=== PATIENT | male | born 1955 | race Caucasian/White ===

== ENCOUNTER 2016-10-02 05:29 | Day surgery (SDC) | payer BC ==
[~2016-10-02] VITALS: Ht 172.7 cm; Wt 86.0 kg
[~2016-10-02 05:29] MED LIST: TYLENOL EXTRA500 MG PO; [UNRECOGNIZED DRUG - OTHER] PO
[2016-10-02 05:54] VITALS: BP 165/96
[2016-10-02 06:37] LABS: HEMATOCRIT 47.8 % (38.0-50.0); MCH 29.5 PG (29.0-34.0); MCHC 32.8 G/DL (30.0-36.0); MCV 89.7 FL (86-99); MEAN PLAT.VOLUME 11.4 uM^3 (9.0-12.4); PLATELET COUNT 233 K/uL (156-360); RBC DIS.WIDTH-CV 12.4 % (11.8-14.6); RBC DIS.WIDTH-SD 40.7 % (39-53); RED BLOOD COUNT 5.33 M/uL (4.00-5.50); WHITE BLOOD COUNT 7.4 K/uL (4.1-10.2)
[2016-10-02 07:07] LABS: ANION GAP 11 MEQ/L (2-14); CHLORIDE 105 MEQ/L (99-109); POTASSIUM 4.1 MEQ/L (3.7-5.4); SAMPLE HEMOLYSIS CHECK 0; SAMPLE ICTERIC CHECK 0; SAMPLE LIPEMIA CHECK 0; SODIUM 141 MEQ/L (136-147); TOTAL BILIRUBIN 0.5 MG/DL (0.0-1.0)
[2016-10-02 07:13] LABS: ALKALINE PHOSPHATASE 170 IU/L (3-129); GFR ESTIMATE (CALCULATED) 55 mL/min/; GLUCOSE 108 mg/dL (70-99); UREA NITROGEN (BUN) 22 mg/dL (9-23)
[2016-10-02 10:00] VITALS: BP 151/83
[2016-10-02 11:20] VITALS: BP 146/91
== END 2016-10-02 11:30 | disposition home or self-care (01) ==
LOC: SDC 05:29
PROVIDERS: Ophthalmology
DX: H33.002 Unspecified retinal detachment with retinal break, left eye (principal); H33.42 Traction detachment of retina, left eye
CPT/HCPCS: 80053; 85027; 93005; J0690; J1100; J1120; J1885; J2250; J2405; J2795